=== PATIENT | female | born 1975 ===

== ENCOUNTER 2017-01-30 10:09 | Outpatient (CLI) | payer OTHER ==
--- NOTE | 2017-01-30 11:16 | Mammography Report ---
Screening mammogram: Baseline examination. Routine views demonstrate a heterogeneously dense and generally symmetrically distributed fibroglandular pattern. Just lateral to the right nipple in the CC projection there is an area of architectural distortion not identified in the lateral projection. The findings bilaterally are otherwise unremarkable. CAD used. Impression: Right asymmetry. Recommendation: Additional compression views of the right breast and ultrasound is needed. BI-RADS CATEGORY: 0 = Needs additional imaging evaluation ACR BI-RADS MAMMOGRAPHIC CODES: 0 = Needs additional imaging evaluation; 1 = Negative; 2 = Benign; 3 = Probably benign; 4 = Suspicious; 5 = Malignant; 6 = Known biopsy-proven malignancy COMMENT: 1. Dense breast tissue, i.e., adenosis, fibrocystic changes, etc., may obscure an underlying neoplasm. 2. Approximately 10% of cancers are not detected with mammography. 3. A negative mammography report should not delay biopsy if a clinically suspicious mass is present.
== END 2017-01-30 10:10 | disposition home or self-care (01) ==
LOC: SPVWC 10:09
PROVIDERS: ATTEND Obstetrics & Gynecology Gynecology
DX: Z12.31 Encounter for screening mammogram for malignant neoplasm of breast (principal)
CPT/HCPCS: 77067; G0202

== ENCOUNTER 2017-02-04 09:00 | Outpatient (CLI) | payer OTHER ==
--- NOTE | 2017-02-04 09:31 | Mammography Report ---
RIGHT DIGITAL DIAGNOSTIC MAMMOGRAM : 02/04/17 09:00:00 CLINICAL: Recalled for asymmetry and architectural distortion. COMPARISON:01/30/17 screening FINDINGS: Lateralmedial and spot compression CC views were performed. Satisfactory placement of asymmetry and architectural distortion on the spot view. The lateral view is negative. IMPRESSION: Negative Mammogram. BI-RADS CATEGORY: 1 -- Negative RECOMMENDATION: Routine mammographic screening in one year. ACR BI-RADS MAMMOGRAPHIC CODES: 0 = Needs additional imaging evaluation; 1 = Negative; 2 = Benign; 3 = Probably benign; 4 = Suspicious; 5 = Malignant; 6 = Known biopsy-proven malignancy COMMENT: 1. Dense breast tissue, i.e., adenosis, fibrocystic changes, etc., may obscure an underlying neoplasm. 2. Approximately 10% of cancers are not detected with mammography. 3. A negative mammography report should not delay biopsy if a clinically suspicious mass is present. COMMENT: Patient follow-up letters are generated via our [employer] application.
== END 2017-02-04 09:01 | disposition home or self-care (01) ==
LOC: SPVWC 09:00
PROVIDERS: ATTEND Obstetrics & Gynecology Gynecology
DX: R92.8 Other abnormal and inconclusive findings on diagnostic imaging of breast (principal)
CPT/HCPCS: G0206-RT